=== PATIENT | female | born 1995 | race Caucasian/White ===

== ENCOUNTER 2016-10-19 10:43 | Emergency (ER) | payer SELFPAY ==
--- NOTE | 2016-10-19 12:50 | RAD ---
CHEST - 2 VIEWS COMPARISON: None. HISTORY: Flulike symptoms. FINDINGS: Views: Frontal and lateral chest Lungs: Normal Heart and vessels: Normal Trachea and bronchi: Normal Mediastinum and cheyenne: Normal Costophrenic sulci: Normal Chest wall and bones: Normal. Upper abdomen: Normal. IMPRESSION: Negative 2 view chest.
[2016-10-19] MEDS ORDERED: ACETAMINOPHEN 325 MG TABLET ONE (13:21)
[2016-10-19] MEDS ORDERED: IBUPROFEN 600 MG TABLET ONE (13:21)
== END 2016-10-19 13:54 | disposition home or self-care (01) ==
LOC: ED 10:43
DX: J09.X2 Influenza due to identified novel influenza A virus with other respiratory manifestations (principal)
CPT/HCPCS: 71020; 87804; 99283 ×2; A9270 ×2